=== PATIENT | female | born 1940 | race Caucasian/White ===

== ENCOUNTER 2024-01-09 10:51 | Emergency (ER) | payer OTHER ==
--- OUTSIDE RECORDS SUMMARY | 2024-01-09 10:53 | XMS REPORT | Continuity of Care Document ---
Author Name Unknown Address [address] [facility] [address] [place] [address] [facility] Address [address] [facility] [address] [place] [address] Care Team Providers Care Operators Teacher Name Role Phone Tonya Turner Attending Clinician Unavailable Payers Payer Name Policy Type Policy Number Effective Date Expirati on Date Source MEDICARE NOVITAS MB [id number] 2007 00:00:00 [facility] Problems Condition Name Condition Details Condition Category Status Onset Date Resolution Date Last Treatment Date Treating Clinician Comments Source [id number] Essential hypertensi on Problem [facility] [id number] Seasonal allergies Problem [facility] Accelerate d essential hypertensi on Accelerate d essential hypertensi on Problem [facility] Mixed hyperlipid emia Mixed hyperlipid emia Problem [facility] Vitamin D deficiency Vitamin D deficiency Problem [facility] Hypothyroi dism Hypothyroi dism Problem [facility] Social History Social Habit Start Date Stop Date Quantity Comments Source History of Tobacco Use [facility] Sex Assigned At [facility] Smoking Status Start Date Stop Date Source Never Smoker [facility] Medications Ordered Medication Name Filled Medication Name Start Date Stop Date Current Medication? Ordering Clinician Indication Dosage Frequency Signature (SIG) Comments Components Source Pravastatin Sodium 40 MG Pravastatin Sodium 40 MG No 1{table t} QD Pravastati n Sodium 40 MG Levothyroxi ne Sodium 100 MCG Levothyroxi ne Sodium 100 MCG No QD Levothyrox ine Sodium 100 MCG Sulfamethox azole-Trime thoprim 800-160 MG Sulfamethox azole-Trime thoprim 800-160 MG No 1{table t} BID Sulfametho xazole-Tri methoprim 800-160 MG Vital Signs Vital Name Observation Time Observation Value Comments S ource height 2023-10-27 11:00:00 61 [in_i] Commo n [facility] weight 2023-10-27 11:00:00 138.4 [lb_av] Co [facility] temperature 2023-10-27 11:00:00 98.2 [degF] Com [facility] bmi 2023-10-27 11:00:00 26.15 kg/m2 Comm on [facility] oximetry 2023-10-27 11:00:00 96 % Commo n [facility] respiratory rate 2023-10-27 11:00:00 16 /min [facility] blood pressure systolic 2023-10-27 11:00:00 136 mm[Hg] [facility] blood pressure diastolic 2023-10-27 11:00:00 82 mm[Hg] [facility] height 2023-08-24 08:00:00 61 [in_i] Commo n [facility] weight 2023-08-24 08:00:00 140.6 [lb_av] Co [facility] temperature 2023-08-24 08:00:00 97.6 [degF] Com [facility] bmi 2023-08-24 08:00:00 26.56 kg/m2 Comm on [facility] oximetry 2023-08-24 08:00:00 96 % Commo n [facility] respiratory rate 2023-08-24 08:00:00 16 /min [facility] height 2023-07-22 09:20:00 61 [in_i] Commo n [facility] weight 2023-07-22 09:20:00 138.6 [lb_av] Co [facility] temperature 2023-07-22 09:20:00 98.2 [degF] Com [facility] bmi 2023-07-22 09:20:00 26.19 kg/m2 Comm on [facility] oximetry 2023-07-22 09:20:00 98 % Commo n [facility] respiratory rate 2023-07-22 09:20:00 16 /min [facility] blood pressure systolic 2023-07-22 09:20:00 128 mm[Hg] Common [facility] blood pressure diastolic 2023-07-22 09:20:00 80 mm[Hg] Common [facility] height 2023-05-04 10:20:00 61 [in_i] Commo n [facility] weight 2023-05-04 10:20:00 139.0 [lb_av] Co [facility] temperature 2023-05-04 10:20:00 98.1 [degF] Com [facility] bmi 2023-05-04 10:20:00 26.26 kg/m2 Comm on [facility] oximetry 2023-05-04 10:20:00 95 % Commo n [facility] respiratory rate 2023-05-04 10:20:00 15 /min [facility] blood pressure systolic 2023-05-04 10:20:00 128 mm[Hg] [facility] blood pressure diastolic 2023-05-04 10:20:00 72 mm[Hg] Common [facility] height 2022-11-04 10:40:00 61 [in_i] Commo n [facility] weight 2022-11-04 10:40:00 137.6 [lb_av] Co mmon [facility] temperature 2022-11-04 10:40:00 97.7 [degF] Com mon [facility] bmi 2022-11-04 10:40:00 26 kg/m2 Commo n [facility] oximetry 2022-11-04 10:40:00 95 % Commo n [facility] respiratory rate 2022-11-04 10:40:00 16 /min [facility] blood pressure systolic 2022-11-04 10:40:00 135 mm[Hg] [facility] blood pressure diastolic 2022-11-04 10:40:00 74 mm[Hg] Common [facility] height 2022-05-04 10:20:00 61 [in_i] Commo n [facility] weight 2022-05-04 10:20:00 139.0 [lb_av] Co [facility]mon [facility] temperature 2022-05-04 10:20:00 98.2 [degF] Com mon [facility] bmi 2022-05-04 10:20:00 26.26 kg/m2 Comm on [facility] oximetry 2022-05-04 10:20:00 95 % Commo n [facility] respiratory rate 2022-05-04 10:20:00 16 /min [facility] blood pressure systolic 2022-05-04 10:20:00 136 mm[Hg] [facility] blood pressure diastolic 2022-05-04 10:20:00 72 mm[Hg] [facility] height 2021-11-04 10:40:00 61 [in_i] Commo n [facility] weight 2021-11-04 10:40:00 138.6 [lb_av] Co [facility]mon [facility] temperature 2021-11-04 10:40:00 96.8 [degF] Com [facility] bmi 2021-11-04 10:40:00 26.19 kg/m2 Comm on [facility] oximetry 2021-11-04 10:40:00 96 % Commo n [facility] respiratory rate 2021-11-04 10:40:00 18 /min [facility] blood pressure systolic 2021-11-04 10:40:00 144 mm[Hg] [facility] blood pressure diastolic 2021-11-04 10:40:00 72 mm[Hg] [facility] height 2021-07-11 10:00:00 61 [in_i] Commo n [facility] weight 2021-07-11 10:00:00 133.6 [lb_av] Co [facility] temperature 2021-07-11 10:00:00 98.6 [degF] Com [facility] bmi 2021-07-11 10:00:00 25.24 kg/m2 Comm on [facility] oximetry 2021-07-11 10:00:00 96 % Commo n [facility] respiratory rate 2021-07-11 10:00:00 18 /min [facility] blood pressure systolic 2021-07-11 10:00:00 128 mm[facility]Hg[facility] blood pressure diastolic 2021-07-11 10:00:00 68 mm[Hg] Common [facility] height 2021-05-01 10:20:00 61 [in_i] Commo n [facility] weight 2021-05-01 10:20:00 135 [lb_av] Comm on [facility] temperature 2021-05-01 10:20:00 98.1 [degF] Com [facility] bmi 2021-05-01 10:20:00 25.51 kg/m2 Comm on [facility] oximetry 2021-05-01 10:20:00 95 % Commo n [facility] respiratory rate 2021-05-01 10:20:00 16 /min [facility] blood pressure systolic 2021-05-01 10:20:00 136 mm[Hg] [facility] blood pressure diastolic 2021-05-01 10:20:00 73 mm[Hg] [facility] height 2021-03-06 10:40:00 61 [in_i] Commo n [facility] weight 2021-03-06 10:40:00 142 [lb_av] Comm on [facility] temperature 2021-03-06 10:40:00 97.5 [degF] Com mon [facility] bmi 2021-03-06 10:40:00 26.83 kg/m2 Comm on [facility] oximetry 2021-03-06 10:40:00 96 % Commo n [facility] respiratory rate 2021-03-06 10:40:00 16 /min [facility] blood pressure systolic 2021-03-06 10:40:00 126 mm[Hg] [facility] blood pressure diastolic 2021-03-06 10:40:00 62 mm[Hg] Common [facility] height 2017-12-30 09:00:00 61 [in_i] Commo n [facility] weight 2017-12-30 09:00:00 141.8 [lb_av] Co [facility]mon [facility] temperature 2017-12-30 09:00:00 98.2 [degF] Com mon [facility] bmi 2017-12-30 09:00:00 26.79 kg/m2 Comm on [facility] oximetry 2017-12-30 09:00:00 95 % Commo n [facility] respiratory rate 2017-12-30 09:00:00 16 /min [facility] blood pressure systolic 2017-12-30 09:00:00 151 mm[Hg] [facility] blood pressure diastolic 2017-12-30 09:00:00 70 mm[Hg] [facility] Encounters Start Date/Time End Date/Time Encounter Type Admission Type Attending [facility] Care Department Encounter ID Source 2023-08-23 12:00:00 Outpatient Tonya Turner STLMLC STLMLC [id number] [facility] 2023-08-20 09:51:00 Outpatient Tonya Turner STLMLC STLMLC [id number] [facility] 2023-06-21 10:54:00 Outpatient Tonya Turner STLMLC STLMLC [id number] [facility] 2021-10-30 14:49:01 Outpatient Tonya Turner STLMLC STLMLC [id number] [facility] 2021-07-09 08:34:00 Outpatient Tonya Turner STLMLC STLMLC [id number] [facility] 2021-04-01 14:39:01 Outpatient Tonya Turner STLMLC STLMLC [id number] [facility] 2021-03-26 11:21:47 Outpatient Tonya Turner STLMLC STLMLC [id number] [facility] 2023-10-27 00:00:00 2023-10-27 00:00:00 (TEL) STLMLC STLMLC [id number] [facility] 2023-10-27 00:00:00 2023-10-27 00:00:00 (TEL) STLMLC STLMLC [id number] [facility] 2023-10-27 00:00:00 2023-10-27 00:00:00 OFFICE VISIT ESTAB PT LEVEL 4 STLMLC STLMLC [id number] [facility] 2023-10-26 00:00:00 2023-10-26 00:00:00 (TEL) STLMLC STLMLC [id number] [facility] 2023-10-19 00:00:00 2023-10-19 00:00:00 (TEL) STLMLC STLMLC [id number] [facility] 2023-08-30 00:00:00 2023-08-30 00:00:00 (TEL) STLMLC STLMLC [id number] [facility] 2023-08-24 00:00:00 2023-08-24 00:00:00 SUB ANNUAL [facility] WELLNESS VISIT STLMLC STLMLC [id number] [facility] 2023-07-26 00:00:00 2023-07-26 00:00:00 (TEL) STLMLC STLMLC [id number] [facility] 2023-07-22 00:00:00 2023-07-22 00:00:00 OFFICE VISIT ESTAB PT LEVEL 4 STLMLC STLMLC [id number] [facility] 2023-05-04 00:00:00 2023-05-04 00:00:00 OFFICE VISIT ESTAB PT LEVEL 3 STLMLC STLMLC [id number] [facility] 2023-02-18 00:00:00 2023-02-18 00:00:00 (TEL) STLMLC STLMLC [id number] [facility] 2023-01-12 00:00:00 2023-01-12 00:00:00 (TEL) STLMLC STLMLC [id number] [facility] 2022-11-04 00:00:00 2022-11-04 00:00:00 OFFICE VISIT ESTAB PT LEVEL 3 STLMLC STLMLC [id number] [facility] 2022-05-04 00:00:00 2022-05-04 00:00:00 OFFICE VISIT ESTAB PT LEVEL 3 STLMLC STLMLC [id number] [facility] 2022-03-11 00:00:00 2022-03-11 00:00:00 (TEL) STLMLC STLMLC [id number] [facility] 2021-12-03 00:00:00 2021-12-03 00:00:00 (TEL) STLMLC STLMLC [id number] [facility] 2021-11-04 00:00:00 2021-11-04 00:00:00 OFFICE VISIT EST PT LEVEL 3 STLMLC STLMLC [id number] [facility] 2021-08-20 00:00:00 2021-08-20 00:00:00 (TEL) STLMLC STLMLC [id number] [facility] 2021-07-11 00:00:00 2021-07-11 00:00:00 SUB ANNUAL MCR WELLNESS VISIT STLMLC STLMLC [id number] [facility] 2021-05-01 00:00:00 2021-05-01 00:00:00 OFFICE VISIT EST PT LEVEL 3 STLMLC STLMLC [id number] [facility] 2021-03-06 00:00:00 2021-03-06 00:00:00 OFFICE VISIT EST PT LEVEL 3 STLMLC STLMLC [id number] [facility] 2021-01-05 00:00:00 2021-01-05 00:00:00 (TEL) STLMLC STLMLC [id number] [facility] 2020-12-09 00:00:00 2020-12-09 00:00:00 (TEL) STLMLC STLMLC [id number] [facility] 2020-10-09 00:00:00 2020-10-09 00:00:00 Outpatient STLMLC STLMLC [id number] [facility] 2020-09-03 00:00:00 2020-09-03 00:00:00 Outpatient STLMLC STLMLC [id number] [facility] 2020-03-12 00:00:00 2020-03-12 00:00:00 Outpatient STLMLC STLMLC [id number] [facility] 2020-01-07 00:00:00 2020-01-07 00:00:00 Outpatient STLMLC STLMLC [id number] [facility] 2020-01-04 00:00:00 2020-01-04 00:00:00 Outpatient STLMLC STLMLC [id number] [facility] 2019-12-18 00:00:00 2019-12-18 00:00:00 Outpatient STLMLC STLMLC [id number] [facility] 2019-12-06 00:00:00 2019-12-06 00:00:00 Outpatient STLMLC STLMLC [id number] [facility] 2019-09-07 17:33:00 2019-09-07 17:33:00 [facility] [id number] [facility] 2019-08-28 16:27:00 2019-08-28 16:27:00 [facility] [address] [facility] [id number] [facility] 2019-07-25 11:00:00 2019-07-25 11:00:00 [facility] [address] [facility] [id number] [facility] 2019-06-13 11:00:00 2019-06-13 11:00:00 [facility] [address] [facility] [id number] [facility] 2019-02-06 08:00:00 2019-02-06 08:00:00 [facility] [address] [facility] [id number] [facility] 2019-01-31 09:00:00 2019-01-31 09:00:00 [facility] [address] [facility] [id number] [facility] 2018-06-30 08:15:00 2018-06-30 08:15:00 [facility] [address] [facility] [id number] [facility] 2017-12-30 00:00:00 2017-12-30 00:00:00 OFFICE VISIT ESTAB PT LEVEL 3 STLMLC STLMLC [id number] [facility] Results Test Description Test Time Test Comments Results Result Co mments Source CBC W/AUTO [id number] 00:00:00* Test Item Value Reference Range Interpretation Comme nts NUCLEATED RBCS (test code = 05960-5) 0.0 /100 WBC'S See_Comment [Automated messa ge] The system which generated this result transmitted reference range: 0.0 /100 WBC'S. The reference range was not used to interpret this result as normal/abnormal. ABSOLUTE EOSINOPHILS (test code = 98061-6) 0.48 K/UL See_Comment [Automated messa ge] The system which generated this result transmitted reference range: 0.00-0.50 K/UL. The reference range was not used to interpret this result as normal/abnormal. ABSOLUTE LYMPHOCYTES (test code = 06188-5) 1.38 K/UL See_Comment [Automated messa ge] The system which generated this result transmitted reference range: 1.00-4.00 K/UL. The reference range was not used to interpret this result as normal/abnormal. ABSOLUTE MONOCYTES (test code = 21783-9) 0.55 K/UL See_Comment [Automated messa ge] The system which generated this result transmitted reference range: 0.20-1.00 K/UL. The reference range was not used to interpret this result as normal/abnormal. ABSOLUTE NEUTROPHILS (test code = 28306-0) 3.69 K/UL See_Comment [Automated messa ge] The system which generated this result transmitted reference range: 1.50-7.50 K/UL. The reference range was not used to interpret this result as normal/abnormal. BASOPHILS (test code = 31903-9) 1.0 % EOSINOPHILS (test code = 36123-4) 7.8 % HEMATOCRIT (test code = 81696-9) 41.9 % See_Comment [Automated messa ge] The system which generated this result transmitted reference range: 34.0-45.0 %. The reference range was not used to interpret this result as normal/abnormal. HEMOGLOBIN (test code = 718-7) 14.3 G/DL See_Comment [Automated messa ge] The system which generated this result transmitted reference range: 11.5-15.5 G/DL. The reference range was not used to interpret this result as normal/abnormal. LYMPHOCYTES (test code = 71323-0) 22.4 % MCH (test code = 00799-7) 31.0 PG See_Comment [Automated messa ge] The system which generated this result transmitted reference range: 25.0-33.0 PG. The reference range was not used to interpret this result as normal/abnormal. MCHC (test code = 46762-8) 34.1 G/DL See_Comment [Automated messa ge] The system which generated this result transmitted reference range: 31.0-36.0 G/DL. The reference range was not used to interpret this result as normal/abnormal. MCV (test code = 72597-2) 90.7 fL See_Comment [Automated messa ge] The system which generated this result transmitted reference range: 80.0-99.0 fL. The reference range was not used to interpret this result as normal/abnormal. MONOCYTES (test code = 42648-6) 8.9 % NEUTROPHILS (test code = 00434-4) 59.7 % PLATELET COUNT (test code = 45931-8) 340 K/UL See_Comment [Automated messa ge] The system which generated this result transmitted reference range: 130-400 K/UL. The reference range was not used to interpret this result as normal/abnormal. RBC (test code = 30718-1) 4.62 M/UL See_Comment [Automated messa ge] The system which generated this result transmitted reference range: 3.80-5.40 M/UL. The reference range was not used to interpret this result as normal/abnormal. RDW (test code = 87545-4) 12.8 % See_Comment [Automated messa ge] The system which generated this result transmitted reference range: 11.5-15.0 %. The reference range was not used to interpret this result as normal/abnormal. WBC (test code = 42303-8) 6.2 K/UL See_Comment [Automated messa ge] The system which generated this result transmitted reference range: 3.5-11.0 K/UL. The reference range was not used to interpret this result as normal/abnormal. CBC W/AUTO [id number] 00:00:00* Test Item Value Reference Range Interpretation Comme nts NUCLEATED RBCS (test code = 70217-3) 0.0 /100 WBC'S See_Comment [Automated messa ge] The system which generated this result transmitted reference range: 0.0 /100 WBC'S. The reference range was not used to interpret this result as normal/abnormal. ABSOLUTE EOSINOPHILS (test code = 61666-1) 0.41 K/UL See_Comment [Automated messa ge] The system which generated this result transmitted reference range: 0.00-0.50 K/UL. The reference range was not used to interpret this result as normal/abnormal. ABSOLUTE LYMPHOCYTES (test code = 91185-9) 1.13 K/UL See_Comment [Automated messa ge] The system which generated this result transmitted reference range: 1.00-4.00 K/UL. The reference range was not used to interpret this result as normal/abnormal. ABSOLUTE MONOCYTES (test code = 55360-9) 0.51 K/UL See_Comment [Automated messa ge] The system which generated this result transmitted reference range: 0.20-1.00 K/UL. The reference range was not used to interpret this result as normal/abnormal. ABSOLUTE NEUTROPHILS (test code = 06601-4) 3.40 K/UL See_Comment [Automated messa ge] The system which generated this result transmitted reference range: 1.50-7.50 K/UL. The reference range was not used to interpret this result as normal/abnormal. BASOPHILS (test code = 82267-5) 0.7 % EOSINOPHILS (test code = 41061-9) 7.5 % HEMATOCRIT (test code = 94790-2) 41.4 % See_Comment [Automated messa ge] The system which generated this result transmitted reference range: 34.0-45.0 %. The reference range was not used to interpret this result as normal/abnormal. HEMOGLOBIN (test code = 718-7) 13.9 G/DL See_Comment [Automated messa ge] The system which generated this result transmitted reference range: 11.5-15.5 G/DL. The reference range was not used to interpret this result as normal/abnormal. LYMPHOCYTES (test code = 70792-8) 20.5 % MCH (test code = 20806-9) 30.6 PG See_Comment [Automated messa ge] The system which generated this result transmitted reference range: 25.0-33.0 PG. The reference range was not used to interpret this result as normal/abnormal. MCHC (test code = 63718-4) 33.6 G/DL See_Comment [Automated messa ge] The system which generated this result transmitted reference range: 31.0-36.0 G/DL. The reference range was not used to interpret this result as normal/abnormal. MCV (test code = 15195-4) 91.2 fL See_Comment [Automated messa ge] The system which generated this result transmitted reference range: 80.0-99.0 fL. The reference range was not used to interpret this result as normal/abnormal. MONOCYTES (test code = 22101-8) 9.3 % NEUTROPHILS (test code = 61713-4) 61.8 % PLATELET COUNT (test code = 14271-7) 353 K/UL See_Comment [Automated messa ge] The system which generated this result transmitted reference range: 130-400 K/UL. The reference range was not used to interpret this result as normal/abnormal. RBC (test code = 53287-3) 4.54 M/UL See_Comment [Automated messa ge] The system which generated this result transmitted reference range: 3.80-5.40 M/UL. The reference range was not used to interpret this result as normal/abnormal. RDW (test code = 07015-2) 12.5 % See_Comment [Automated messa ge] The system which generated this result transmitted reference range: 11.5-15.0 %. The reference range was not used to interpret this result as normal/abnormal. WBC (test code = 25340-6) 5.5 K/UL See_Comment [Automated messa ge] The system which generated this result transmitted reference range: 3.5-11.0 K/UL. The reference range was not used to interpret this result as normal/abnormal.
[2024-01-09 11:37] LABS: Specific Gravity 1.005 (1.005-1.030); Sqamous Epithelial <5 /HPF (None Seen); Urine Bacteria <20 /HPF (<20); Urine Bilirubin NEGATIVE (Negative); Urine Blood 1+ (Negative); Urine Clarity Extremely Turbid (Clear); Urine Color Colorless (Yellow); Urine Culture Reflex Order REFLEXED; Urine Glucose NEGATIVE (Negative); Urine Ketones NEGATIVE (Negative); Urine Microscopic Reflex YN ORDER UMIC; Urine Mucus Slight /HPF (None Seen); Urine Nitrite NEGATIVE (Negative); Urine Protein TRACE (Negative); Urine RBC <5 /HPF (None Seen); Urine Urobilinogen Normal (Normal); Urine WBC >50 /HPF (<5); Urine WBC Clump Few /HPF (None Seen)
--- NOTE | 2024-01-09 11:40 | ER ---
Nurse's Notes [facility] Name: Alea Maldonado Age: 83 yrs Sex: Female : 1940 Arrival Date: 01/09/2024 Time: 10:51 Bed 11 Private MD: Diagnosis: UTI/ Urinary tract infection, site not specified Presentation: 01/08 11:00 Chief complaint: Patient states: urinary urgency that began yesterday. Coronavirus aa5 screen: At this time, the client does not indicate any symptoms associated with coronavirus-19. Ebola Screen: Patient denies travel to an Ebola-affected area in the 21 days before illness onset. Initial Sepsis Screen: Does the patient meet any 2 criteria? No. Patient's initial sepsis screen is negative. Does the patient have a suspected source of infection? No. Patient's initial sepsis screen is negative. Risk Assessment: Do you want to hurt yourself or someone else? Patient reports no desire to harm self or others. Onset of symptoms was December 2023. 11:00 Method Of Arrival: Ambulatory aa5 11:00 Acuity: JOSEPH 4 aa5 Historical: - Allergies: 11: No Known Allergies; aa5 - Home Meds: 11: Lisinopril Oral [Active]; levothyroxine oral [Active]; pravastatin oral [Active]; aa5 - PMHx: 11: Hypothyroidism; Hypertensive disorder; aa5 - PSHx: 11: hysterectomy; section; aa5 - Immunization history:: Adult Immunizations unknown. - Infectious Disease History:: Denies. - Social history:: Smoking status: Patient denies any tobacco usage or history of. Screenin:00 [facility] ED Fall Risk Assessment (Adult) History of falling in the last 3 months, aa5 including since admission No falls in past 3 months (0 pts) Confusion or Disorientation No (0 pts) Intoxicated or Sedated No (0 pts) Impaired Gait No (0 pts) Mobility Assist Device Used No (0 pt) Altered Elimination No (0 pt) Score/Fall Risk Level 0 - 2 = Low Risk Oriented to surroundings, Maintained a safe environment, Educated pt \T\ family on fall prevention, incl call for assistance when getting out of bed. Abuse screen: Denies threats or abuse. Nutritional screening: No deficits noted. Tuberculosis screening: No symptoms or risk factors identified. Assessment: 11:00 General: Appears comfortable, Behavior is calm, cooperative, appropriate for age. Pain: aa5 Denies pain. Neuro: Level of Consciousness is awake, alert, obeys commands, Oriented to person, place, time, situation. Cardiovascular: Patient's skin is warm and dry. Respiratory: Airway is patent Respiratory effort is even, unlabored, Respiratory pattern is regular, symmetrical. GI: No signs and/or symptoms were reported involving the gastrointestinal system. : Reports urgency, urinary frequency, Denies burning with urination. EENT: No signs and/or symptoms were reported regarding the EENT system. Derm: Skin is pink, warm \T\ dry. Musculoskeletal: Range of motion: intact in all extremities. 11:12 Reassessment: Patient is alert, oriented x 3, equal unlabored respirations, skin aa5 warm/dry/pink. Urine sent to lab. Pt notified of wait time for results. . 11:32 Reassessment: Patient is alert, oriented x 3, equal unlabored respirations, skin aa5 warm/dry/pink. 12:08 Reassessment: Patient is alert, oriented x 3, equal unlabored respirations, skin aa5 warm/dry/pink. Vital Signs: 11:00 BP 183 / 102; Pulse 86; Resp 16 S; Temp 98.2(O); Pulse Ox 97% on R/A; aa5 11:32 BP 159 / 89; Pulse 73; Resp 16 S; Pulse Ox 98% on R/A; aa5 ED Course: 10:55 Patient arrived in ED. ra3 10:55 Medina Honeycutt FNP-C [facility]. kb 10:55 Thomas Bautista MD is Attending Physician. kb 11:00 Arm band placed on. aa5 11:00 Patient has correct armband on for positive identification. aa5 11:01 Triage completed. aa5 11:22 Christel Martin, SRIDHAR is Primary Nurse. aa5 12:08 No provider procedures requiring assistance completed. Patient did not have IV access aa5 during this emergency room visit. Administered Medications: 12:08 Drug: Amoxicillin-Clavulanate PO 875 mg PO once Route: PO; aa5 12:08 Follow up: Response: No adverse reaction; Medication administered at discharge. aa5 Medication: 12:08 VIS not applicable for this client. aa5 Outcome: 11:39 Discharge ordered by . prieto 12:08 Discharged to home ambulatory, aa5 12:08 Condition: stable 12:08 Discharge instructions given to patient, Instructed on discharge instructions, follow up and referral plans. medication usage, Demonstrated understanding of instructions, follow-up care, medications, Prescriptions given X 1, 12:09 Patient left the ED. aa5 Addendum: 01/11/2024 08:13 Addendum: Culture Results: Positive urine culture. No further action required. Bacteria s s sensitive to prescribed antibiotic. Signatures: Medina Honeycutt, INSOLE CHANNELER-C INSOLE CHANNELER-CkChristel Cope, RN RN aa5 Lena Thompson, RN RN ss Monica Sosa ra3 Corrections: (The following items were deleted from the chart) 01/08 16:04 12:00 Abuse screen: Denies threats or abuse. aa5 aa5 16: 12:00 Nutritional screening: No deficits noted. aa5 aa 16: 12:00 Tuberculosis screening: No symptoms or risk factors identified. aa5 aa 16: 12:00 [facility] ED Fall Risk Assessment (Adult) History of falling in the last 3 months, aa5 including since admission No falls in past 3 months (0 pts) Confusion or Disorientation No (0 pts) Intoxicated or Sedated No (0 pts) Impaired Gait No (0 pts) Mobility Assist Device Used No (0 pt) Altered Elimination No (0 pt) Score/Fall Risk Level 0 - 2 = Low Risk Oriented to surroundings, Maintained a safe environment, Educated pt \T\ family on fall prevention, incl call for assistance when getting out of bed, aa5
--- NOTE | 2024-01-09 11:40 | EDPHYS ---
Physician Documentation [facility] Name: Alea Maldonado Age: 83 yrs Sex: Female : 1940 Arrival Date: 01/09/2024 Time: 10:51 Bed 11 Private MD: ED Physician Thomas Bautista HPI: 01/08 11:40 This 83 yrs old Female presents to ER via Ambulatory with complaints of Urinary Problem.kb 11:40 pt is an 83 year old female who presents for urinary urgency and frequency that started kb yesterday. States "I have a UTI. I know because I've had a lot of them before and this is exactly the same." Denies fever, abd pain, flank pain.. Historical: - Allergies: 11:01 No Known Allergies; aa5 - Home Meds: 11:01 Lisinopril Oral [Active]; levothyroxine oral [Active]; pravastatin oral [Active]; aa5 - PMHx: 11:01 Hypothyroidism; Hypertensive disorder; aa5 - PSHx: 11:01 hysterectomy; section; aa5 - Immunization history:: Adult Immunizations unknown. - Infectious Disease History:: Denies. - Social history:: Smoking status: Patient denies any tobacco usage or history of. ROS: 11:40 Constitutional: As per HPI kb Exam: 11:40 Constitutional: This is a well developed, well nourished patient who is awake, alert, kb and in no acute distress. Head/Face: Normocephalic, atraumatic. ENT: Moist Mucous membranes Cardiovascular: Regular rate Respiratory: Respirations even and unlabored. No increased work of breathing. Talking in full sentences Abdomen/GI: Soft, non-tender. No distention Skin: Warm, dry with normal turgor. Normal color. MS/ Extremity: Pulses equal, no cyanosis. Neurovascular intact. Full, normal range of motion. Neuro: Awake and alert, GCS 15, oriented to person, place, time, and situation. Vital Signs: 11:00 BP 183 / 102; Pulse 86; Resp 16 S; Temp 98.2(O); Pulse Ox 97% on R/A; aa5 11:32 BP 159 / 89; Pulse 73; Resp 16 S; Pulse Ox 98% on R/A; aa5 MDM: 10:55 Medical Screening Exam initiated kb 11:40 Differential diagnosis: UTI, dehydration. Data reviewed: vital signs, nurses notes. kb Counseling: I had a detailed discussion with the patient and/or guardian regarding the historical points, exam findings, and any diagnostic results supporting the discharge/admit diagnosis, lab results, the need for outpatient follow up, a family practitioner, to return to the emergency department if symptoms worsen or persist or if there are any questions or concerns that arise at home. 01/08 11:03 Order name: Urinalysis w/ reflexes; Complete Time: 11:39 kb 01/08 11:41 Order name: Urine Culture EDMS Administered Medications: 12:08 Drug: Amoxicillin-Clavulanate PO 875 mg PO once Route: PO; aa5 12:08 Follow up: Response: No adverse reaction; Medication administered at discharge. aa5 Disposition Summary: 01/09/24 11:39 Discharge Ordered Notes: Location: Home kb Condition: Stable kb Diagnosis - UTI/ Urinary tract infection, site not specified kb Followup: kb - With: Emergency Department - When: As needed - Reason: Worsening of condition Followup: kb - With: Private Physician - When: 2 - 3 days - Reason: Recheck today's complaints, Continuance of care, Re-evaluation by your physician Discharge Instructions: - Discharge Summary Sheet kb - Urinary Tract Infection, Adult, [id number] kb Forms: - Medication Reconciliation Form kb - Antibiotic Education kb - Prescription Opioid Use kb - Patient Portal Instructions kb - Leadership Thank You Letter kb Prescriptions: - Augmentin 875-125 mg Oral Tablet - take 1 tablet ORAL route every 12 hours for 10 days; 20 tablet; Refills: 0, kb Product Selection Permitted Signatures: Dispatcher [employer] Medina Veliz, ZENA-C ZENA-Christel Gamez, RN RN aa5
[2024-01-09] MEDS ORDERED: AMOX/K CLAV 875 MG TAB ONE (12:05)
[2024-01-09 12:20] VITALS: TEMP 98.2
[2024-01-09 12:24] VITALS: BP 159/89; O2SAT 98
== END 2024-01-09 12:09 | disposition home or self-care (01) ==
LOC: ER 10:51
DX: N39.0 Urinary tract infection, site not specified (principal); I10 Essential (primary) hypertension
CPT/HCPCS: 81001; 87077; 87086; 87088; 87186; 99283

== ENCOUNTER 2024-03-23 14:53 | Emergency (ER) | payer OTHER ==
--- OUTSIDE RECORDS SUMMARY | 2024-03-23 14:56 | XMS REPORT | Continuity of Care Document ---
Author Name Unknown Address [address] [facility] [address] [place] [address] [facility] thconnect Address [address] [facility] [address] [place] [address] Care Team Providers Care Content Engineer Name Role Phone Tonya Turner Attending Clinician Unavailable Payers Payer Name Policy Type Policy Number Effective Date Expirati on Date Source MEDICARE RENETTA BANERJEE [id number] 2007 00:00:00 [facility] Problems Condition Name Condition Details Condition Category Status Onset Date Resolution Date Last Treatment Date Treating Clinician Comments Source [id number] Essential hypertensi on Problem [facility] [id number] Seasonal allergies Problem [facility] Accelerate d essential hypertensi on Accelerate d essential hypertensi on Problem [facility] Mixed hyperlipid emia Mixed hyperlipid emia Problem [facility] Vitamin D deficiency Vitamin D deficiency Problem [facility] Hypothyroi dism Hypothyroi dism Problem [facility] Social History Social Habit Start Date Stop Date Quantity Comments Source History of Tobacco Use [facility] Sex Assigned At [facility] Smoking Status Start Date Stop Date Source Never Smoker [facility] Medications Ordered Medication Name Filled Medication [...] Name Observation Time Observation Value Comments S christiano height 2023-10-27 11:00:00 61 [in_i] Commo n [facility] weight 2023-10-27 11:00:00 138.4 [lb_av] Co [facility] temperature 2023-10-27 11:00:00 98.2 [degF] Com [facility] bmi 2023-10-27 11:00:00 26.15 kg/m2 Comm on [facility] oximetry 2023-10-27 11:00:00 96 % Commo n [facility] respiratory rate 2023-10-27 11:00:00 16 /min [facility] blood pressure systolic 2023-10-27 11:00:00 136 mm[Hg] [facility] blood pressure diastolic 2023-10-27 11:00:00 82 mm[Hg] [facility] height 2023-08-24 08:00:00 61 [in_i] Commo n [facility] weight 2023-08-24 08:00:00 140.6 [facility]lb_av] [facility] 2023-08-24 08:00:00 97.6 [degF] Com [facility] bmi 2023-08-24 08:00:00 26.56 kg/m2 Comm on [facility] oximetry 2023-08-24 08:00:00 96 % Commo n [facility] respiratory rate 2023-08-24 08:00:00 16 /min [facility] height 2023-07-22 09:20:00 61 [in_i] Commo n [facility] weight 2023-07-22 09:20:00 138.6 [lb_av] Co [facility] temperature 2023-07-22 09:20:00 98.2 [degF] Com [facility] bmi 2023-07-22 09:20:00 26.19 kg/m2 Comm on [facility] oximetry 2023-07-22 09:20:00 98 % Commo n [facility] respiratory rate 2023-07-22 09:20:00 16 /min [facility] blood pressure systolic 2023-07-22 09:20:00 128 mm[Hg] Common [facility] blood pressure diastolic 2023-07-22 09:20:00 80 mm[Hg] Common [facility] height 2023-05-04 10:20:00 61 [in_i] Commo n [facility] weight 2023-05-04 10:20:00 139.0 [lb_av] Co on [facility] temperature 2023-05-04 10:20:00 98.1 [degF] Com [facility] bmi 2023-05-04 10:20:00 26.26 kg/m2 Comm on [facility] oximetry 2023-05-04 10:20:00 95 % Commo n [facility] respiratory rate 2023-05-04 10:20:00 15 /min [facility] blood pressure systolic 2023-05-04 10:20:00 128 mm[Hg] [facility] blood pressure diastolic 2023-05-04 10:20:00 72 mm[Hg] Common [facility] height 2022-11-04 10:40:00 61 [in_i] Commo n [facility] weight 2022-11-04 10:40:00 137.6 [lb_av] Co mmon [facility] temperature 2022-11-04 10:40:00 97.7 [degF] Com mon [facility] bmi 2022-11-04 10:40:00 26 kg/m2 Commo n [facility] oximetry 2022-11-04 10:40:00 95 % Commo n [facility] respiratory rate 2022-11-04 10:40:00 16 /min [facility] blood pressure systolic 2022-11-04 10:40:00 135 mm[Hg] [facility] blood pressure diastolic 2022-11-04 10:40:00 74 mm[Hg] [facility] height 2022-05-04 10:20:00 61 [in_i] Commo n [facility] weight 2022-05-04 10:20:00 139.0 [lb_av] Co mmon [facility] temperature 2022-05-04 10:20:00 98.2 [degF] Com mon [facility] bmi 2022-05-04 10:20:00 26.26 kg/m2 Comm on [facility] oximetry 2022-05-04 10:20:00 95 % Commo n [facility] respiratory rate 2022-05-04 10:20:00 16 /min [facility] blood pressure systolic 2022-05-04 10:20:00 136 mm[Hg] [facility] blood pressure diastolic 2022-05-04 10:20:00 72 mm[Hg] [facility] height 2021-11-04 10:40:00 61 [in_i] Commo n [facility] weight 2021-11-04 10:40:00 138.6 [lb_av] Co mmon [facility] temperature 2021-11-04 10:40:00 96.8 [degF] Com mon [facility] bmi 2021-11-04 10:40:00 26.19 kg/m2 Comm on [facility] oximetry 2021-11-04 10:40:00 96 % Commo n [facility] respiratory rate 2021-11-04 10:40:00 18 /min [facility] blood pressure systolic 2021-11-04 10:40:00 144 mm[Hg] [facility] blood pressure diastolic 2021-11-04 10:40:00 72 mm[Hg] [facility] height 2021-07-11 10:00:00 61 [in_i] Commo n [facility] weight 2021-07-11 10:00:00 133.6 [lb_av] Co mmon [facility] temperature 2021-07-11 10:00:00 98.6 [degF] Com [facility] bmi 2021-07-11 10:00:00 25.24 kg/m2 Comm on [facility] oximetry 2021-07-11 10:00:00 96 % Commo n [facility] respiratory rate 2021-07-11 10:00:00 18 /min [facility] blood pressure systolic 2021-07-11 10:00:00 128 mm[Hg] [facility] blood pressure diastolic 2021-07-11 10:00:00 68 mm[Hg] [facility] height 2021-05-01 10:20:00 61 [in_i] Commo n [facility] weight 2021-05-01 10:20:00 135 [lb_av] Comm on [facility] temperature 2021-05-01 10:20:00 98.1 [degF] Com [facility] bmi 2021-05-01 10:20:00 25.51 kg/m2 Comm on [facility] oximetry 2021-05-01 10:20:00 95 % Commo n [facility] respiratory rate 2021-05-01 10:20:00 16 /min [facility] blood pressure systolic 2021-05-01 10:20:00 136 mm[Hg] [facility] blood pressure diastolic 2021-05-01 10:20:00 73 mm[Hg] [facility] height 2021-03-06 10:40:00 61 [in_i] Commo n [facility] weight 2021-03-06 10:40:00 142 [lb_av] Comm on [facility] temperature 2021-03-06 10:40:00 97.5 [degF] Com mon [facility] bmi 2021-03-06 10:40:00 26.83 kg/m2 Comm on [facility] oximetry 2021-03-06 10:40:00 96 % Commo n [facility] respiratory rate 2021-03-06 10:40:00 16 /min [facility] blood pressure systolic 2021-03-06 10:40:00 126 mm[Hg] [facility] blood pressure diastolic 2021-03-06 10:40:00 62 mm[Hg] [facility] height 2017-12-30 09:00:00 61 [in_i] Commo n [facility] weight 2017-12-30 09:00:00 141.8 [lb_av] Co mmon [facility] temperature 2017-12-30 09:00:00 98.2 [degF] Com mon [facility] bmi 2017-12-30 09:00:00 26.79 kg/m2 Comm on [facility] oximetry 2017-12-30 09:00:00 95 % Commo n [facility] respiratory rate 2017-12-30 09:00:00 16 /min [facility] blood pressure systolic 2017-12-30 09:00:00 151 mm[Hg] [facility] blood pressure diastolic 2017-12-30 09:00:00 70 mm[Hg] [facility] Encounters Start Date/Time End Date/Time Encounter Type Admission Type Attending [facility] Care Department Encounter ID Source 2024-03-23 09:17:00 Outpatient Tonya Turner [facility]LML[facility] ST[facility] [id number] [facility] 2023-08-23 12:00:00 Outpatient Tonya Turner STLML[facility] ST[facility] [id number] [facility] 2023-08-20 09:51:00 Outpatient Tonya Turner [facility] ST[facility] [id number] [facility] 2023-06-21 10:54:00 Outpatient Tonya Turner [facility] ST[facility] [id number] [facility] 2021-10-30 14:49:01 Outpatient Tonya Turner [facility] ST[facility] [id number] [facility] 2021-07-09 08:34:00 Outpatient Tonya Turner STLML[facility] ST[facility] [id number] [facility] 2021-04-01 14:39:01 Outpatient Tonya Turner STLMLC STL[facility]C [id number] [facility] 2021-03-26 11:21:47 Outpatient Tonya Turner STLMLC ST[facility] [id number] [facility] 2023-10-27 00:00:00 2023-10-27 00:00:00 OFFICE VISIT ESTAB PT LEVEL 4 [facility] ST[facility] [id number] [facility] 2023-10-27 00:00:00 2023-10-27 00:00:00 (TEL) STLMLC STL[facility]C [id number] [facility] 2023-10-27 00:00:00 2023-10-27 00:00:00 (TEL) STLMLC STLMLC [id number] [facility] 2023-10-26 00:00:00 2023-10-26 00:00:00 (TEL) STLMLC STLMLC [id number] [facility] 2023-10-19 00:00:00 2023-10-19 00:00:00 (TEL) STLMLC STL[facility]C [id number] [facility] 2023-08-30 00:00:00 2023-08-30 00:00:00 (TEL) STLMLC STL[facility]C [id number] [facility] 2023-08-24 00:00:00 2023-08-24 00:00:00 SUB ANNUAL [facility] VISIT [facility] STL[facility] [id number] [facility] 2023-07-26 00:00:00 2023-07-26 00:00:00 (TEL) STLMLC STL[facility]C [id number] [facility] 2023-07-22 00:00:00 2023-07-22 00:00:00 OFFICE VISIT ESTAB PT LEVEL 4 [facility] ST[facility] [id number] [facility] 2023-05-04 00:00:00 2023-05-04 00:00:00 OFFICE VISIT ESTAB PT LEVEL 3 [facility] ST[facility] [id number] [facility] 2023-02-18 00:00:00 2023-02-18 00:00:00 (TEL) STLMLC STL[facility]C [id number] [facility] 2023-01-12 00:00:00 2023-01-12 00:00:00 (TEL) STLMLC STLMLC [id number] [facility] 2022-11-04 00:00:00 2022-11-04 00:00:00 OFFICE VISIT ESTAB PT LEVEL 3 [facility] ST[facility] [id number] [facility] 2022-05-04 00:00:00 2022-05-04 00:00:00 OFFICE VISIT ESTAB PT LEVEL 3 [facility] ST[facility] [id number] [facility] 2022-03-11 00:00:00 2022-03-11 00:00:00 (TEL) STLMLC STLMLC [id number] [facility] 2021-12-03 00:00:00 2021-12-03 00:00:00 (TEL) STLMLC STLMLC [id number] [facility] 2021-11-04 00:00:00 2021-11-04 00:00:00 OFFICE VISIT EST PT LEVEL 3 [facility] STL[facility]C [id number] [facility] 2021-08-20 00:00:00 2021-08-20 00:00:00 (TEL) STLMLC STLMLC [id number] [facility] 2021-07-11 00:00:00 2021-07-11 00:00:00 SUB ANNUAL [facility] VISIT [facility] STL[facility]C [id number] [facility] 2021-05-01 00:00:00 2021-05-01 00:00:00 OFFICE VISIT EST PT LEVEL 3 [facility] ST[facility] [id number] [facility] 2021-03-06 00:00:00 2021-03-06 00:00:00 OFFICE VISIT EST PT LEVEL 3 [facility] ST[facility] [id number] [facility] 2021-01-05 00:00:00 2021-01-05 00:00:00 (TEL) STLMLC STL[facility]C [id number] [facility] 2020-12-09 00:00:00 2020-12-09 00:00:00 (TEL) STLMLC STLMLC [id number] [facility] 2020-10-09 00:00:00 2020-10-09 00:00:00 Outpatient [facility] STL[facility] [id number] [facility] 2020-09-03 00:00:00 2020-09-03 00:00:00 Outpatient [facility] [id number] [facility] 2020-03-12 00:00:00 2020-03-12 00:00:00 Outpatient [facility] [id number] [facility] 2020-01-07 00:00:00 2020-01-07 00:00:00 Outpatient [facility] [id number] [facility] 2020-01-04 00:00:00 2020-01-04 00:00:00 Outpatient [facility] [id number] [facility] 2019-12-18 00:00:00 2019-12-18 00:00:00 Outpatient [facility] [id number] [facility] 2019-12-06 00:00:00 2019-12-06 00:00:00 Outpatient [facility] [id number] [facility] 2019-09-07 17:33:00 2019-09-07 17:33:[address] [facility] [id number] [facility] 2019-08-28 16:27:00 2019-08-28 16:27:[address] [facility] [address] [facility] [id number] [facility] 2019-07-25 11:00:00 2019-07-25 11:00:00 [facility] [address] [facility] [id number] [facility] 2019-06-13 11:00:00 2019-06-13 11:00:00 [facility] [address] [facility] [id number] [facility] 2019-02-06 08:00:00 2019-02-06 08:00:[address] [facility] [address] [facility] [id number] [facility] 2019-01-31 09:00:00 2019-01-31 09:00:00 [facility] [address] [facility] [id number] [facility] 2018-06-30 08:15:00 2018-06-30 08:15:[address] [facility] [facility] [address] [facility] [id number] [facility] 2017-12-30 00:00:00 2017-12-30 00:00:00 OFFICE VISIT ESTAB PT LEVEL 3 [facility] [id number] [facility] Results Test Description Test Time Test Comments Results Result Co mments Source CBC W/AUTO [id number] 00:00:00* Test Item Value Reference Range Interpretation Comme nts NUCLEATED RBCS (test code = 78843-3) 0.0 /100 WBC'S See_Comment [Automated messa ge] The system which generated this result transmitted reference range: 0.0 /100 WBC'S. The reference range was not used to interpret this result as normal/abnormal. ABSOLUTE EOSINOPHILS (test code = 15700-1) 0.48 K/UL See_Comment [Automated messa ge] The system which generated this result transmitted reference range: 0.00-0.50 K/UL. The reference range was not used to interpret this result as normal/abnormal. ABSOLUTE LYMPHOCYTES (test code = 01167-3) 1.38 K/UL See_Comment [Automated messa ge] The system which generated this result transmitted reference range: 1.00-4.00 K/UL. The reference range was not used to interpret this result as normal/abnormal. ABSOLUTE MONOCYTES (test code = 76021-0) 0.55 K/UL See_Comment [Automated messa ge] The system which generated this result transmitted reference range: 0.20-1.00 K/UL. The reference range was not used to interpret this result as normal/abnormal. ABSOLUTE NEUTROPHILS (test code = 56613-0) 3.69 K/UL See_Comment [Automated messa ge] The system which generated this result transmitted reference range: 1.50-7.50 K/UL. The reference range was not used to interpret this result as normal/abnormal. BASOPHILS (test code = 90785-5) 1.0 % EOSINOPHILS (test code = 96018-8) 7.8 % HEMATOCRIT (test code = 14855-8) 41.9 % See_Comment [Automated messa ge] The [...] result as normal/abnormal. LYMPHOCYTES (test code = 66217-2) 22.4 % MCH (test code = 57342-0) 31.0 PG See_Comment [Automated messa ge] The system which generated this result transmitted reference range: 25.0-33.0 PG. The reference range was not used to interpret this result as normal/abnormal. MCHC (test code = 55835-8) 34.1 G/DL See_Comment [Automated messa ge] The system which generated this result transmitted reference range: 31.0-36.0 G/DL. The reference range was not used to interpret this result as normal/abnormal. MCV (test code = 95778-4) 90.7 fL See_Comment [Automated messa ge] The system which generated this result transmitted reference range: 80.0-99.0 fL. The reference range was not used to interpret this result as normal/abnormal. MONOCYTES (test code = 41753-6) 8.9 % NEUTROPHILS (test code = 94007-2) 59.7 % PLATELET COUNT (test code = 33816-2) 340 K/UL See_Comment [Automated messa ge] The system which generated this result transmitted reference range: 130-400 K/UL. The reference range was not used to interpret this result as normal/abnormal. RBC (test code = 04033-4) 4.62 M/UL See_Comment [Automated messa ge] The system which generated this result transmitted reference range: 3.80-5.40 M/UL. The reference range was not used to interpret this result as normal/abnormal. RDW (test code = 65317-3) 12.8 % See_Comment [Automated messa ge] The system which generated this result transmitted reference range: 11.5-15.0 %. The reference range was not used to interpret this result as normal/abnormal. WBC (test code = 18751-4) 6.2 K/UL See_Comment [Automated messa ge] The system which generated this result transmitted reference range: 3.5-11.0 K/UL. The reference range was not used to interpret this result as normal/abnormal. CBC W/AUTO [id number] 00:00:00* Test Item Value Reference Range Interpretation Comme nts NUCLEATED RBCS (test code = 12104-6) 0.0 /100 WBC'S See_Comment [Automated messa ge] The system which generated this result transmitted reference range: 0.0 /100 WBC'S. The reference range was not used to interpret this result as normal/abnormal. ABSOLUTE EOSINOPHILS (test code = 71089-2) 0.41 K/UL See_Comment [Automated messa ge] The system which generated this result transmitted reference range: 0.00-0.50 K/UL. The reference range was not used to interpret this result as normal/abnormal. ABSOLUTE LYMPHOCYTES (test code = 38702-2) 1.13 K/UL See_Comment [Automated messa ge] The system which generated this result transmitted reference range: 1.00-4.00 K/UL. The reference range was not used to interpret this result as normal/abnormal. ABSOLUTE MONOCYTES (test code = 03025-2) 0.51 K/UL See_Comment [Automated messa ge] The system which generated this result transmitted reference range: 0.20-1.00 K/UL. The reference range was not used to interpret this result as normal/abnormal. ABSOLUTE NEUTROPHILS (test code = 58650-4) 3.40 K/UL See_Comment [Automated messa ge] The system which generated this result transmitted reference range: 1.50-7.50 K/UL. The reference range was not used to interpret this result as normal/abnormal. BASOPHILS (test code = 41081-5) 0.7 % EOSINOPHILS (test code = 96125-6) 7.5 % HEMATOCRIT (test code = 86498-0) 41.4 % See_Comment [Automated messa ge] The [...] result as normal/abnormal. LYMPHOCYTES (test code = 22053-4) 20.5 % MCH (test code = 70077-9) 30.6 PG See_Comment [Automated messa ge] The system which generated this result transmitted reference range: 25.0-33.0 PG. The reference range was not used to interpret this result as normal/abnormal. MCHC (test code = 10250-4) 33.6 G/DL See_Comment [Automated messa ge] The system which generated this result transmitted reference range: 31.0-36.0 G/DL. The reference range was not used to interpret this result as normal/abnormal. MCV (test code = 85889-9) 91.2 fL See_Comment [Automated messa ge] The system which generated this result transmitted reference range: 80.0-99.0 fL. The reference range was not used to interpret this result as normal/abnormal. MONOCYTES (test code = 84636-3) 9.3 % NEUTROPHILS (test code = 90736-9) 61.8 % PLATELET COUNT (test code = 87962-7) 353 K/UL See_Comment [Automated messa ge] The system which generated this result transmitted reference range: 130-400 K/UL. The reference range was not used to interpret this result as normal/abnormal. RBC (test code = 05895-1) 4.54 M/UL See_Comment [Automated messa ge] The system which generated this result transmitted reference range: 3.80-5.40 M/UL. The reference range was not used to interpret this result as normal/abnormal. RDW (test code = 07480-4) 12.5 % See_Comment [Automated messa ge] The system which generated this result transmitted reference range: 11.5-15.0 %. The reference range was not used to interpret this result as normal/abnormal. WBC (test code = 80251-5) 5.5 K/UL See_Comment [Automated messa ge] The system which generated this result transmitted reference range: 3.5-11.0 K/UL. The reference range was not used to interpret this result as normal/abnormal.
[2024-03-23 15:53] LABS: Specific Gravity 1.015 (1.005-1.030); Sqamous Epithelial <5 /HPF (None Seen); Transitional Epithelial <5 /HPF (None Seen); Urine Bacteria None Seen /HPF (<20); Urine Bilirubin NEGATIVE (Negative); Urine Blood 1+ (Negative); Urine Clarity Extremely Turbid (Clear); Urine Color Yellow (Yellow); Urine Culture Reflex Order REFLEXED; Urine Glucose NEGATIVE (Negative); Urine Ketones NEGATIVE (Negative); Urine Micro Reflex YN NO BILL MICROSCOPIC; Urine Mucus 1+ /HPF (None Seen); Urine Nitrite NEGATIVE (Negative); Urine Protein 1+ (Negative); Urine Urobilinogen Normal (Normal); Urine WBC >50 /HPF (<5); Urine pH 6.5 (5.0-7.0)
--- NOTE | 2024-03-23 16:00 | EDPHYS ---
Physician Documentation [facility] Name: Alea Maldonado Age: 83 yrs Sex: Female : 1940 Arrival Date: 03/23/2024 Time: 14:53 Bed DX3 Private MD: ED Physician Familia Castro HPI: 03/23 15:15 This 83 yrs old Female presents to ER via Ambulatory with complaints of Urinary Problem.cp 15:15 The patient presents with urinary symptoms, dysuria. Onset: The symptoms/episode cp began/occurred for past few days. 15:15 Associated signs and symptoms: Pertinent positives: dysuria, Pertinent negatives: cp diarrhea, fever, vomiting, back pain. Severity of symptoms: in the emergency department the symptoms are unchanged, despite home interventions. Historical: - Allergies: 15:08 No Known Allergies; ap3 - PMHx: 15:08 Hypertensive disorder; Hypothyroidism; ap3 - PSHx: 15:08 section; hysterectomy; ap3 - Immunization history:: Client reports receiving the 2nd dose of the Covid vaccine, Flu vaccine is not up to date. - Infectious Disease History:: Denies. - Social history:: Smoking status: Patient denies any tobacco usage or history of. ROS: 15:20 Constitutional: Negative for body aches, chills, fever, poor PO intake, cp 15:20 Eyes: Negative for injury, pain, redness, and discharge, cp 15:20 Cardiovascular: Negative for chest pain, 15:20 Respiratory: Negative for cough, shortness of breath, wheezing, 15:20 Abdomen/GI: Negative for nausea and vomiting, diarrhea, constipation, 15:20 Back: Negative for pain at rest, pain with movement, 15:20 Neuro: Negative for altered mental status, dizziness, headache, weakness, 15:20 All other systems are negative, Exam: 15:25 Constitutional: The patient appears in no acute distress, alert, awake, cp non-diaphoretic, non-toxic, well developed, well nourished, 15:25 Head/Face: Normocephalic, atraumatic. cp 15:25 Eyes: Periorbital structures: appear normal, Conjunctiva: normal, no exudate, no injection, Sclera: no appreciated abnormality, Lids and lashes: appear normal, bilaterally, 15:25 ENT: External ear(s): are unremarkable, Nose: is normal, Mouth: Lips: moist, Oral mucosa: moist, Posterior pharynx: Airway: no evidence of obstruction, patent, 15:25 Chest/axilla: Inspection: normal, 15:25 Cardiovascular: Rate: normal, Rhythm: regular, 15:25 Respiratory: the patient does not display signs of respiratory distress, Respirations: normal, no use of accessory muscles, no retractions, labored breathing, is not present, 15:25 Abdomen/GI: Exam negative for discomfort, distension, guarding, Inspection: abdomen appears normal, 15:25 Back: pain, is absent, ROM is normal, 15:25 Neuro: Orientation: to person, place \T\ time. Mentation: is normal, Motor: moves all fours, strength is normal, Gait: is steady, at a normal pace, without difficulty, Vital Signs: 15:07 BP 166 / 95; Pulse 73; Resp 17; Temp 98.4; Pulse Ox 96% ; Weight 60.78 kg; Height 5 ft. ap3 1 in. ; Pain 8/10; 15:07 Body Mass Index 25.32 (60.78 kg, 154.94 cm) ap3 15:07 Pain Scale: Adult ap3 MDM: 15:13 Medical Screening Exam initiated 15:45 Differential diagnosis: urinary tract infection, pyelonephritis, sepsis. 15:59 Data reviewed: vital signs, nurses notes, lab test result(s), and as a result, I will cp discharge patient. 15:59 I considered the following discharge prescriptions or medication management in the emergency department Medications were administered in the Emergency Department. See APR. 15:59 Care significantly affected by the following chronic conditions: Hypertension. Counseling: I had a detailed discussion with the patient and/or guardian regarding lab results. 03/23 15:09 Order name: Urinalysis W/Microscopic; Complete Time: 15:57 03/23 15:58 Interpretation: Normal except: [facility] Extremely Turbid; UBLD 1+; UPROT 1+; UESTR 500; cp UWBC >50; URBC 11-20. 03/23 15:58 Order name: Urine Culture EDMS Administered Medications: 16:18 Drug: Nitrofurantoin PO 100 mg PO once; administer with food Route: PO; ap3 16:50 Follow up: Response: Medication administered at discharge. ap3 16:18 Drug: Phenazopyridine PO 200 mg PO once Route: PO; ap3 16:50 Follow up: Response: Medication administered at discharge. ap3 Disposition: 03/24 07:46 Co-signature as Attending Physician, Familia Castro MD I reviewed the patient's care rt provided by the Advanced Practice Provider and agree with the diagnosis and treatment plan. Disposition Summary: 03/23/24 15:59 Discharge Ordered Notes: Location: Home cp Problem: new cp Symptoms: are unchanged cp Condition: Stable cp Diagnosis - UTI/ Urinary tract infection, site not specified cp Followup: cp - With: Private Physician - When: 2 - 3 days - Reason: Worsening of condition Discharge Instructions: - Discharge Summary Sheet cp - Urinary Tract Infection, Adult cp Forms: - Medication Reconciliation Form cp - Antibiotic Education cp - Prescription Opioid Use cp - Patient Portal Instructions cp - Leadership Thank You Letter cp Prescriptions: - Pyridium 200 mg Oral tablet - take 1 tablet ORAL route every 8 hours for 3 days; 6 tablet; Refills: 0, cp Product Selection Permitted - Macrobid 100 mg Oral Capsule - take 1 capsule ORAL route every 12 hours for 7 days; 14 capsule; Refills: 0, cp Product Selection Permitted Signatures: Dispatcher [employer] EDMS Thomas Campos PA PA cp Ann Marie Pérez RN RN ap3 Familia Castro MD MD rt
--- NOTE | 2024-03-23 16:00 | ER ---
Nurse's Notes [facility] Name: Alea Maldonado Age: 83 yrs Sex: Female : 1940 Arrival Date: 03/23/2024 Time: 14:53 Bed DX3 Private MD: Diagnosis: UTI/ Urinary tract infection, site not specified Presentation: 03/23 15:07 Chief complaint: Patient states: she has bladder pressure, and urinary frequency for a ap3 few days. Coronavirus screen: At this time, the client does not indicate any symptoms associated with coronavirus-19. Ebola Screen: No symptoms or risks identified at this time. Initial Sepsis Screen: Does the patient meet any 2 criteria? No. Patient's initial sepsis screen is negative. Does the patient have a suspected source of infection?. Risk Assessment: Do you want to hurt yourself or someone else? Patient reports no desire to harm self or others. Onset of symptoms was March 19, 2024. 15:07 Method Of Arrival: Ambulatory ap3 15:07 Acuity: JOSEPH 3 ap3 Triage Assessment: 15:09 General: Appears in no apparent distress. Behavior is calm, cooperative, appropriate ap3 for age. Pain: Complains of pain in groin and suprapubic area Pain currently is 8 out of 10 on a pain scale. Pain began 2-3 days ago. Neuro: Level of Consciousness is awake, alert, obeys commands, Oriented to person, place, time, situation, Appropriate for age Speech is normal. Cardiovascular: Patient's skin is warm and dry. Respiratory: Airway is patent Respiratory effort is even, unlabored, Respiratory pattern is regular, symmetrical. : Reports urinary frequency. Historical: - Allergies: 15:08 No Known Allergies; ap3 - PMHx: 15:08 Hypertensive disorder; Hypothyroidism; ap3 - PSHx: 15:08 section; hysterectomy; ap3 - Immunization history:: Client reports receiving the 2nd dose of the Covid vaccine, Flu vaccine is not up to date. - Infectious Disease History:: Denies. - Social history:: Smoking status: Patient denies any tobacco usage or history of. Screenin:09 [facility] ED Fall Risk Assessment (Adult) History of falling in the last 3 months, ap3 including since admission No falls in past 3 months (0 pts) Confusion or Disorientation No (0 pts) Intoxicated or Sedated No (0 pts) Impaired Gait No (0 pts) Mobility Assist Device Used No (0 pt) Altered Elimination No (0 pt) Score/Fall Risk Level 0 - 2 = Low Risk Oriented to surroundings, Maintained a safe environment, Educated pt \T\ family on fall prevention, incl call for assistance when getting out of bed, Assessed \T\ reinforced patient's understanding of fall precautions, Hourly rounding (assess needs \T\ fall precautionary measures) done, Used ambulatory aids as needed (educated on \T\ assisted with), Used gait belt as appropriate. Abuse screen: Denies threats or abuse. Nutritional screening: No deficits noted. Tuberculosis screening: No symptoms or risk factors identified. Vital Signs: 15:07 BP 166 / 95; Pulse 73; Resp 17; Temp 98.4; Pulse Ox 96% ; Weight 60.78 kg; Height 5 ft. ap3 1 in. ; Pain 8/10; 15:07 Body Mass Index 25.32 (60.78 kg, 154.94 cm) ap3 15:07 Pain Scale: Adult ap3 ED Course: 14:57 Patient arrived in ED. sj2 15:00 Thomas Campos PA is PHCP. cp 15:00 Familia Castro MD is Attending Physician. cp 15:08 Triage completed. ap3 15:09 Arm band placed on left wrist. ap3 16:25 Patient has correct armband on for positive identification. patient in chair. Provided ap3 Education on: discharge instructions. 16:25 No provider procedures requiring assistance completed. Patient did not have IV access ap3 during this emergency room visit. Administered Medications: 16:18 Drug: Nitrofurantoin PO 100 mg PO once; administer with food Route: PO; ap3 16:50 Follow up: Response: Medication administered at discharge. ap3 16:18 Drug: Phenazopyridine PO 200 mg PO once Route: PO; ap3 16:50 Follow up: Response: Medication administered at discharge. ap3 Medication: 16:26 VIS not applicable for this client. ap3 Outcome: 15:59 Discharge ordered by . cp 16:25 Discharged to home ambulatory, ap3 16:25 Condition: good 16:25 Discharge instructions given to patient, Instructed on discharge instructions, follow up and referral plans. medication usage, Demonstrated understanding of instructions, follow-up care, medications, Prescriptions given X 2, 16:27 Patient left the ED. ap3 Signatures: Thomas Campos PA PA cp Prokisch, Amanda, RN RN ap3 Katya Rodriguez 2
[2024-03-23] MEDS ORDERED: PHENAZOPYRIDINE 100MG TAB PO ONE (16:15)
[2024-03-23] MEDS ORDERED: NITROFURAN MACRO 100 MG CAP PO ONE (16:16)
[2024-03-23 16:31] VITALS: BP 166/95; TEMP 98.4; O2SAT 96
== END 2024-03-23 16:27 | disposition home or self-care (01) ==
LOC: ER 14:53
DX: N39.0 Urinary tract infection, site not specified (principal); I10 Essential (primary) hypertension
CPT/HCPCS: 81001; 87077; 87086; 87088; 87186; 99283